=== PATIENT | female | born 1985 | race Caucasian/White ===

== ENCOUNTER 2019-06-22 14:32 | Outpatient (CLI) | payer OTHER, SELFPAY ==
[2019-06-22 15:37] LABS: Beta HCG Quantitative 19.23 mIU/ML
== END 2019-06-22 14:33 | disposition home or self-care (01) ==
DX: O02.1 Missed abortion (principal)
CPT/HCPCS: 36415; 84702

== ENCOUNTER 2022-08-10 07:48 | Emergency (ER) | payer OTHER, SELFPAY ==
[2022-08-10 07:49] VITALS: BP 127/89; PULSE 80; RESP 18; TEMP 36.6; O2SAT 100
[2022-08-10 09:10] LABS: Add Urine Microscopic? YES; Appearance Urine Turbid (Clear); Bacteria Urine 4+ /hpf; Bilirubin Urine Negative (Negative); Blood Urine 2+ (Negative); Color Urine Yellow (Yellow); Glucose Urine UA Negative (Negative); Ketones Urine 1+ mg/dL (Negative); Leukocyte Esterase Ur 3+ LEU/UL (Negative); Mucus Urine Present /lpf; Nitrate Urine Positive (Negative); Protein Urine 2+ mg/dL (Negative); Specific Grav Ur 1.015 (1.001-1.035); Squamous Epithelial Cell Urine None seen /hpf (Few); Urobilinogen Urine 0.2 mg/dL (<2.0); WBC Urine >100 /hpf; pH Urine 5.5 (5.0-9.0)
--- NOTE | 2022-08-10 09:29 | ED.GENADULT ---
HPI - General Adult General Chief complaint: Back Pain/Injury Stated complaint: left flank pain Time Seen by Provider: 08/10/22 08:10 History of Present Illness HPI narrative: 36-year-old female presented to the emergency department for evaluation of left flank pain. Patient denies any prior history of kidney stones. Patient does have prior history of urinary tract infections. Patient states with her prior infections that she typically does not have any burning with urination. Patient denies any associated nausea vomiting or diarrhea. Patient states her pain is controlled at this time. Related Data Allergies Allergy/AdvReac Type Severity Reaction Status Date / Time No Known Allergies Allergy Unverified 04/25/17 10:58 Review of Systems Review of Systems: All systems reviewed & are unremarkable except as noted in HPI and below Exam Narrative: APPEARANCE: Well appearing, no pain, no distress, well-nourished. HEAD: normocephalic, atraumatic. EYES: PERRLA/EOMI, conjunctivae clear. NOSE: Normal no drainage NECK: Supple. No adenopathy, no masses. RESPIRATORY: Airway patent, respirations nonlabored. Clear to auscultation bilaterally, no rales, rhonchi, wheezing. CARDIOVASCULAR: Regular rate and rhythm without murmurs rubs or gallops. ABDOMINAL: Suprapubic tenderness to palpation with no left CVA tenderness to palpation, no left lower quadrant tenderness to palpation MUSCULOSKELETAL: Moves all extremities. Strength/ROM intact, No edema, No calf tenderness. NEURO: Alert. Cranial nerves II through XII intact. Grossly intact SKIN: Warm, dry. Normal Color Course Course Emergency Course: 36-year-old female presented the ED for evaluation of left flank pain. UA was concerning for urinary tract infection and patient will be started on Keflex. Patient is breast-feeding so she will not be provided Pyridium. Patient was informed to take Tylenol and ibuprofen for pain control. Patient was also encouraged to have close follow-up with her primary care physician. Vital Signs Vital signs: Vital Signs Temperature 97.8 F 08/10/22 07:49 Pulse Rate 80 08/10/22 07:49 Respiratory Rate 18 08/10/22 07:49 Blood Pressure 127/89 08/10/22 07:49 Pulse Oximetry 100 08/10/22 07:49 Oxygen Delivery Room Air 08/10/22 07:49 Temperature 97.8 F 08/10/22 07:49 Pulse Rate 86 08/10/22 09:59 Respiratory Rate 16 08/10/22 09:59 Blood Pressure 132/88 08/10/22 09:59 Pulse Oximetry 98 08/10/22 09:59 Oxygen Delivery Room Air 08/10/22 07:49 Medical Decision Making Differential Diagnosis Differential Diagnosis: UTI, kidney stone, cystitis Vital Signs Vital Signs: Vital Signs Temperature 97.8 F 08/10/22 07:49 Pulse Rate 80 08/10/22 07:49 Respiratory Rate 18 08/10/22 07:49 Blood Pressure 127/89 08/10/22 07:49 Pulse Oximetry 100 08/10/22 07:49 Oxygen Delivery Room Air 08/10/22 07:49 Temperature 97.8 F 08/10/22 07:49 Pulse Rate 86 08/10/22 09:59 Respiratory Rate 16 08/10/22 09:59 Blood Pressure 132/88 08/10/22 09:59 Pulse Oximetry 98 08/10/22 09:59 Oxygen Delivery Room Air 08/10/22 07:49 Lab Data Lab results reviewed: Yes I reviewed the patient's lab results. Labs: Lab Results 08/10/22 Range/Units 08:16 Urine Color Yellow (Yellow) Urine Appearance Turbid H (Clear) Urine pH 5.5 (5.0-9.0) Ur Specific [place] 1.015 (1.001-1.035) Urine Protein 2+ H (Negative) mg/dL Urine Glucose (UA) Negative (Negative) mg/dL Urine Ketones 1+ H (Negative) mg/dL Ur Blood (Man) 2+ H (Negative) Urine Nitrate Positive H (Negative) Urine Bilirubin Negative (Negative) Urine Urobilinogen 0.2 (<2.0) mg/dL Leukocyte Esterase Rfl 3+ H (Negative) CHAYO/UL Urine RBC 6-10 H (0-2) /hpf Urine WBC >100 H /hpf Ur Squamous Epith Cells None seen (Few) /hpf Urine Bacteria 4+ H /hpf Urine Casts 6-10 Urine Mucus Present /lpf
--- NOTE | 2022-08-10 09:41 | PC.NURSE ---
This RN called [facility] to verify that they received the chart via fax from earlier. Spoke with Philomena who verified that it was received, however, the patient will not be a candidate for admission there due to being involuntary and [place] of state. 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
[2022-08-10] MEDS: CEPHALEXIN 500 MG CAPSULE PO (09:57)
[2022-08-10 09:59] VITALS: BP 132/88; PULSE 86; RESP 16; O2SAT 98
== END 2022-08-10 10:00 | disposition home or self-care (01) ==
PROVIDERS: Emergency Provider Emergency Medicine
DX: R82.998 Other abnormal findings in urine (principal)
CPT/HCPCS: 81001; 81025; 87077; 87086; 87186; 99283; A9270

== ENCOUNTER 2022-08-24 11:53 | Emergency (ER) | payer OTHER, SELFPAY ==
[2022-08-24 12:05] VITALS: BP 112/76; PULSE 71; RESP 16; TEMP 36.4; O2SAT 100
--- NOTE | 2022-08-24 12:28 | ED.FEMALEGU ---
HPI - Female Genitourinary General Chief complaint: Back Pain/Injury Stated complaint: Pain Lt Side Time Seen by Provider: 08/24/22 12:05 Source: patient Mode of arrival: ambulatory Limitations: no limitations History of Present Illness HPI Narrative: Yobany is a 36-year-old female patient presenting to the clinic today with complaints of left-sided flank pain and fever/chills that began again yesterday. Reports that she was seen in the ER 2 weeks ago for flank pain and fever and was diagnosed with a urinary tract infection. Urine culture shows E coli and she was given Keflex. States that after week of the Keflex she felt better however symptoms returned yesterday. Patient is . Related Data Allergies Allergy/AdvReac Type Severity Reaction Status Date / Time No Known Allergies Allergy Verified 08/24/22 12:00 Review of Systems Review of Systems: Pertinent positives per HPI. Patient denies any rash, headache, visual changes, dizziness, cough, runny nose, sore throat, shortness of breath, chest pain, palpitations, nausea, vomiting, diarrhea, constipation, abdominal pain. PMFSH Comments At the time of my signature, I reviewed and agree with the nursing past medical, surgical, social, and family history. There is no relevant family history pertinent to the patient complaint. Exam Narrative: General: Well-developed, well nourished, in no apparent distress. Head: Normocephalic, atraumatic. Cardio: Regular rate and rhythm, s1 and s2 normal, no murmur appreciated. Resp: Clear to auscultation bilaterally, no rhonchi, rales, wheezing or rubs. Abdomen: Soft, pliable, nondistended, bowel sounds present in all quadrants, mild tender to palpation in the left upper quadrant, no organomegly, positive left CVAT tenderness. Course Course Emergency Course: Portions of this record may have been created with voice recognition software. Level of Care: Express Care Visit Vital Signs Vital signs: Vital Signs Temperature 36.4 C L 08/24/22 12:05 Pulse Rate 71 08/24/22 12:05 Respiratory Rate 16 08/24/22 12:05 Blood Pressure 112/76 08/24/22 12:05 Pulse Oximetry 100 08/24/22 12:05 Temperature 36.4 C L 08/24/22 12:05 Pulse Rate 71 08/24/22 12:05 Respiratory Rate 16 08/24/22 12:05 Blood Pressure 112/76 08/24/22 12:05 Pulse Oximetry 100 08/24/22 12:05 Vital signs reviewed MDM - Female Genitourinary MDM Narrative Medical decision making narrative: At the time of visit patient is resting on the exam table. Patient reports fever and chills with left flank pain. Urinalysis was completed in the ER 2 weeks ago and was distinctly positive for kidney infection. Patient was placed on Keflex at that time however she was only given 7 days. Urinalysis today shows 1+ protein and trace of leukocytes with bili. Patient is currently . Will send in prescription for Augmentin for 10 days. Supportive measures were discussed with the patient she voiced understanding of the discharge instructions and agrees to treatment plan. Differential Diagnosis Differential diagnosis: Likely urinary tract infection, cystitis and other (Pyelonephritis) Lab Data Labs: Urine Glucose Negative Reference Range: Negative Urine Bilirubin 1+ Reference Range: Negative Urine Ketone Negative Reference Range: Negative Urine Specific [place] 1.030 Reference Range:1.001-1.035 Urine Blood Negative Reference Range: Negative * * Urine pH 6.0 Reference Range: 5.0-
== END 2022-08-24 12:39 | disposition home or self-care (01) ==
PROVIDERS: Emergency Provider Nurse Practitioner Family
DX: N12 Tubulo-interstitial nephritis, not specified as acute or chronic (principal)
CPT/HCPCS: 81003; 87086; 99213; G0463